=== PATIENT | female | born 1990 | race African-American/Black ===

== ENCOUNTER 2017-05-13 14:03 | Emergency (ER) | payer SELFPAY | END 2017-05-13 14:49 | disposition home or self-care (01) | LOC: SCSER 14:03 | DX: R22.9 Localized swelling, mass and lump, unspecified (principal); Z87.891 Personal history of nicotine dependence | CPT/HCPCS: 99283 ==

== ENCOUNTER 2017-05-16 12:48 | Outpatient (CLI) | payer OTHER ==
--- NOTE | 2017-05-16 15:09 | ULT ---
LEFT NECK SOFT TISSUE ULTRASOUND: Comparison: None. History: Palpable mass in the left neck. Technique: Multiplanar grayscale and color doppler images were obtained in a target ultrasound of th e left neck. FINDINGS: A normal appearing clavicle is seen. No fluid collection or solid mass is identified at the area of palpable abnormality. No enlarged lymph nodes are present. IMPRESSION: No significant abnormality at the area of palpable abnormality in the left neck. POS: RANDY
== END 2017-05-16 12:49 | disposition home or self-care (01) ==
LOC: ULT 12:48
PROVIDERS: ATTEND Otolaryngology Pediatric Otolaryngology
DX: M54.2 Cervicalgia (principal)
CPT/HCPCS: 76999

== ENCOUNTER 2021-05-29 10:13 | Outpatient (CLI) | payer BC | END 2021-05-29 10:14 | disposition home or self-care (01) | LOC: RAD-FRANK 10:13 | PROVIDERS: ATTEND Nurse Practitioner Family | DX: M54.6 Pain in thoracic spine (principal) | CPT/HCPCS: 72070 ==

== ENCOUNTER 2025-03-02 13:19 | Outpatient (CLI) | payer BC | END 2025-03-02 13:20 | disposition home or self-care (01) | LOC: SCSMRI 13:19 | PROVIDERS: ATTEND Physician Assistant | DX: E04.2 Nontoxic multinodular goiter (principal); E07.89 Other specified disorders of thyroid; R13.10 Dysphagia, unspecified; J35.1 Hypertrophy of tonsils | CPT/HCPCS: 70540 ==